=== PATIENT | male | born 1975 | race Caucasian/White ===

== ENCOUNTER 2016-09-30 22:58 | Emergency (ER) | payer OTHER, MEDICARE ==
[2016-09-30 23:15] VITALS: BP 141/77; PULSE 91; RESP 18; TEMP 97.8
[2016-10-01] MEDS ORDERED: LORATADINE 10 MG TAB PO STA (00:10)
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
== END 2016-10-01 00:35 | disposition home or self-care (01) ==
LOC: EC 22:58
DX: T78.49XA Other allergy, initial encounter (principal); Z87.891 Personal history of nicotine dependence; Z79.899 Other long term (current) drug therapy; Z88.0 Allergy status to penicillin; Z88.1 Allergy status to other antibiotic agents
CPT/HCPCS: 99282

== ENCOUNTER 2020-01-11 07:17 | Emergency (ER) | payer MEDICARE, OTHER ==
[2020-01-11 07:24] VITALS: RESP 18
[2020-01-11] MEDS ORDERED: ONDANSETRON 4 MG/2 ML VIAL IVP STA (07:36)
[2020-01-11] MEDS ORDERED: SODIUM CHLORIDE 0.9% 1,000 ML IV STA (07:36)
[2020-01-11] MEDS ORDERED: HYDROmorphone 0.5 MG/0.5 ML SYRINGE IVP STA (07:41)
--- NOTE | 2020-01-11 07:41 | ED ---
General Adult HPI - General Chief complaint: Abdominal Pain Stated complaint: abd pain Time Seen by Provider: 01/11/20 07:20 Source: patient, RN notes reviewed, old records reviewed Mode of arrival: ambulatory Limitations: no limitations - History of Present Illness Initial comments: This is a 44-year-old male who presents to the emergency department complaining of 2 days of the left lower abdominal pain. Patient states he went to [facility] yesterday and had lab work and a CAT scan and they sent him home. Patient states they told him he has a mass on his kidney and he needs to follow-up with urology. He states the pain got so bad that he decided come back to this hospital today. Patient states he has been vomiting and only able to keep down very small amounts of water. Patient states he's not had a normal bowel movement in days but he is still passing a little bit of gas and stool. He fever chills per patient denies any previous abdominal surgeries. Patient states he does have IBS. Patient denies any chest pain difficulty breathing shortness of breath. Patient states since yesterday she's had 4 bloody stools. Patient states he does have bad hemorrhoids and believes that's where the blood is coming from. - Related Data Home Medications Medication Instructions Recorded Confirmed Ergocalciferol (Vitamin D2) 50,000 unit PO 09/30/16 [Vitamin D2] Ibuprofen [Motrin] 600 mg PO Q8HR PRN 09/30/16 09/30/16 Methylphenidate HCl [Ritalin] 20 mg PO TID 09/30/16 09/30/16 Phentermine HCl [Adipex-P] 09/30/16 09/30/16 Allergies Allergy/AdvReac Type Severity Reaction Status Date / Time amoxicillin [From Augmentin] AdvReac Nausea & Verified 01/11/20 07:20 Vomiting & Diarrhea cephalexin [From Keflex] AdvReac Nausea & Verified 01/11/20 07:20 Vomiting & Diarrhea ciprofloxacin [From Cipro] AdvReac Nausea & Verified 01/11/20 07:20 Vomiting & Diarrhea clavulanic acid AdvReac Nausea & Verified 01/11/20 07:20 [From Augmentin] Vomiting & Diarrhea Review of Systems ROS Statement: Those systems with pertinent positive or pertinent negative responses have been documented in the HPI. ROS Other: All systems not noted in ROS Statement are negative. Past Medical History Past Medical History: Asthma Additional Past Medical History / Comment(s): traumatic brain injury, IBS, L4 and L5 bulging disc History of Any Multi-Drug Resistant Organisms: None Reported Past Surgical History: Orthopedic Surgery Additional Past Surgical History / Comment(s): carpal tunnel sx, neck surgery Past Psychological History: PTSD Smoking Status: Never smoker Past Alcohol Use History: None Reported Past Drug Use History: Marijuana General Exam - General Exam Comments Initial Comments: GENERAL: Patient is well-developed and well-nourished. Patient is nontoxic and well- hydrated and is in mild distress. ENT: Neck is soft and supple. No significant lymphadenopathy is noted. Oropharynx is clear. Moist mucous membranes. Neck has full range of motion without eliciting any pain. EYES: The sclera were anicteric and conjunctiva were pink and moist. Extraocular movements were intact and pupils were equal round and reactive to light. Eyelids were unremarkable. PULMONARY: Unlabored respirations. Good breath sounds bilaterally. No audible rales rhonchi or wheezing was noted. CARDIOVASCULAR: There is a regular rate and rhythm without any murmurs gallops or rubs. ABDOMEN: Soft and nontender with normal bowel sounds. SKIN: Skin is clear with no lesions or rashes and otherwise unremarkable. NEUROLOGIC: Patient is alert and oriented x3. Cranial nerves II through XII are grossly intact. Motor and sensory are also intact. Normal speech, volume and content. Symmetrical smile. MUSCULOSKELETAL: Normal extremities with adequate strength and full range of motion. LYMPHATICS: No significant lymphadenopathy is noted PSYCHIATRIC: Normal psychiatric evaluation. Limitations: no limitations Course Vital Signs 01/11/20 07:21 Temperature 97.8 F Pulse Rate 71 Respiratory 18 Rate Blood Pressure 156/105 O2 Sat by Pulse 99 Oximetry Medical Decision Making - Medical Decision Making I will back in the room to reevaluate the patient patient stated he was feeling better and did not want to stay in the hospital even though I offered admission. KUB shows no acute abnormalities. Patient is following up with Dr. Trinidad today. - Lab Data Result diagrams: 01/11/20 07:42 01/11/20 07:42 Lab Results 01/11/20 01/11/20 01/11/20 Range/Units 07:42 07:42 07:42 WBC 12.1 H (3.8-10.6) k/uL RBC 4.87 (4.30-5.90) m/uL Hgb 14.6 (13.0-17.5) gm/dL Hct 45.4 (39.0-53.0) % MCV 93.3 (80.0-100.0) fL MCH 30.0 (25.0-35.0) pg MCHC 32.1 (31.0-37.0) g/dL RDW 13.2 (11.5-15.5) % Plt Count 254 (150-450) k/uL Neutrophils % 71 % Lymphocytes % 19 % Monocytes % 6 % Eosinophils % 2 % Basophils % 1 % Neutrophils # 8.6 H (1.3-7.7) k/uL Lymphocytes # 2.3 (1.0-4.8) k/uL Monocytes # 0.8 (0-1.0) k/uL Eosinophils # 0.3 (0-0.7) k/uL Basophils # 0.1 (0-0.2) k/uL PT (9.0-12.0) sec INR (<1.2) APTT (22.0-30.0) sec Sodium 141 (137-145) mmol/L Potassium 3.9 (3.5-5.1) mmol/L Chloride 107 (98-107) mmol/L Carbon Dioxide 27 (22-30) mmol/L Anion Gap 7 mmol/L BUN 10 (9-20) mg/dL Creatinine 0.72 (0.66-1.25) mg/dL Est GFR (CKD-EPI)AfAm >90 (>60 ml/min/1.73 sqM) Est GFR (CKD-EPI)NonAf >90 (>60 ml/min/1.73 sqM) Glucose 115 H (74-99) mg/dL Calcium 9.0 (8.4-10.2) mg/dL Total Bilirubin 0.7 (0.2-1.3) mg/dL AST 22 (17-59) U/L ALT 20 (4-49) U/L Alkaline Phosphatase 55 (38-126) U/L Total Protein 6.7 (6.3-8.2) g/dL Albumin 4.2 (3.5-5.0) g/dL Amylase 88 (30-110) U/L Lipase 68 (23-300) U/L Urine Color Light Yellow Urine Appearance Clear (Clear) Urine pH 7.5 (5.0-8.0) Ur Specific [place] 1.014 (1.001-1.035) Urine Protein Negative (Negative) Urine Glucose (UA) Negative (Negative) Urine Ketones Negative (Negative) Urine Blood Negative (Negative) Urine Nitrite Negative (Negative) Urine Bilirubin Negative (Negative) Urine Urobilinogen <2.0 (<2.0) mg/dL Ur Leukocyte Esterase Negative (Negative) 01/11/20 Range/Units 07:42 WBC (3.8-10.6) k/uL RBC (4.30-5.90) m/uL Hgb (13.0-17.5) gm/dL Hct (39.0-53.0) % MCV (80.0-100.0) fL MCH (25.0-35.0) pg MCHC (31.0-37.0) g/dL RDW (11.5-15.5) % Plt Count (150-450) k/uL Neutrophils % % Lymphocytes % % Monocytes % % Eosinophils % % Basophils % % Neutrophils # (1.3-7.7) k/uL Lymphocytes # (1.0-4.8) k/uL Monocytes # (0-1.0) k/uL Eosinophils # (0-0.7) k/uL Basophils # (0-0.2) k/uL PT 9.6 (9.0-12.0) sec INR 0.9 (<1.2) APTT 23.2 (22.0-30.0) sec Sodium (137-145) mmol/L Potassium (3.5-5.1) mmol/L Chloride (98-107) mmol/L Carbon Dioxide (22-30) mmol/L Anion Gap mmol/L BUN (9-20) mg/dL Creatinine (0.66-1.25) mg/dL Est GFR (CKD-EPI)AfAm (>60 ml/min/1.73 sqM) Est GFR (CKD-EPI)NonAf (>60 ml/min/1.73 sqM) Glucose (74-99) mg/dL Calcium (8.4-10.2) mg/dL Total Bilirubin (0.2-1.3) mg/dL AST (17-59) U/L ALT (4-49) U/L Alkaline Phosphatase (38-126) U/L Total Protein (6.3-8.2) g/dL Albumin (3.5-5.0) g/dL Amylase (30-110) U/L Lipase (23-300) U/L Urine Color Urine Appearance (Clear) Urine pH (5.0-8.0) Ur Specific [place] (1.001-1.035) Urine Protein (Negative) Urine Glucose (UA) (Negative) Urine Ketones (Negative) Urine Blood (Negative) Urine Nitrite (Negative) Urine Bilirubin (Negative) Urine Urobilinogen (<2.0) mg/dL Ur Leukocyte Esterase (Negative) Disposition Clinical Impression: Abdominal pain, Kidney mass Disposition: HOME SELF-CARE Condition: Good Instructions (If sedation given, give patient instructions): Abdominal Pain (ED) Is patient prescribed a controlled substance at d/c from ED?: No Referrals: Bettye Rosen MD [Primary Care Provider] - 1-2 days Time of Disposition: 09:09
[2020-01-11 08:03] LABS: Basophils # (A) 0.1 k/uL (0-0.2); Basophils % (A) 1 %; Eosinophils # (A) 0.3 k/uL (0-0.7); Eosinophils % (A) 2 %; HCT 45.4 % (39.0-53.0); HGB 14.6 gm/dL (13.0-17.5); Lymphocytes # (A) 2.3 k/uL (1.0-4.8); Lymphocytes % (A) 19 %; MCHC 32.1 g/dL (31.0-37.0); MCV 93.3 fL (80.0-100.0); Mean Platelet Volume 7.2; Monocytes # (A) 0.8 k/uL (0-1.0); Monocytes % (A) 6 %; Neutrophils # (A) 8.6 k/uL (1.3-7.7); Neutrophils % (A) 71 %; Platelet Count 254 k/uL (150-450); RBC 4.87 m/uL (4.30-5.90); RDW 13.2 % (11.5-15.5); WBC 12.1 k/uL (3.8-10.6)
[2020-01-11 08:05] LABS: Appearance,Urine Clear (Clear); Bilirubin,Urine Negative (Negative); Blood,Urine Negative (Negative); Color,Urine Light Yellow; Glucose,Urine (UA) Negative (Negative); Ketones,Urine Negative (Negative); Leukocyte Esterase,Urine Negative (Negative); Nitrite,Urine Negative (Negative); PH, Urine 7.5 (5.0-8.0); Protein,Urine Negative (Negative); Specific Gravity,Urine 1.014 (1.001-1.035); Urobilinogen,Urine <2.0 mg/dL (<2.0)
[2020-01-11 08:11] LABS: INR 0.9 (<1.2); Partial Thromboplastin Time 23.2 sec (22.0-30.0); Prothrombin Time 9.6 sec (9.0-12.0)
[2020-01-11 08:18] LABS: ALT 20 U/L (4-49); AST 22 U/L (17-59); African American GFR (CKD) >90 (>60 ml/min/1.73 sqM); Albumin 4.2 g/dL (3.5-5.0); Alkaline Phosphatase 55 U/L (38-126); Amylase 88 U/L (30-110); Anion Gap 7 mmol/L; Blood Urea Nitrogen 10 mg/dL (9-20); Carbon Dioxide 27 mmol/L (22-30); Chloride 107 mmol/L (98-107); Glucose 115 mg/dL (74-99); Non-African American GFR(CKD) >90 (>60 ml/min/1.73 sqM); Potassium 3.9 mmol/L (3.5-5.1); Sodium 141 mmol/L (137-145); Total Bilirubin 0.7 mg/dL (0.2-1.3); Total Protein 6.7 g/dL (6.3-8.2)
--- NOTE | 2020-01-11 08:28 | XR ---
EXAMINATION TYPE: XR KUB DATE OF EXAM: 01/11/2020 COMPARISON: NONE HISTORY: Pain TECHNIQUE: One view abdominal series FINDINGS: The osseous structures are intact. The bowel gas pattern is nonspecific. Lung bases are clear. Tiny bone island involving the right femoral head noted. IMPRESSION: 1. Nonspecific abdomen.
[2020-01-11 09:21] VITALS: BP 115/79; PULSE 60; TEMP 98.2
== END 2020-01-11 09:20 | disposition home or self-care (01) ==
LOC: EC 07:17
DX: N28.89 Other specified disorders of kidney and ureter (principal); Z79.899 Other long term (current) drug therapy; Z88.0 Allergy status to penicillin; Z88.1 Allergy status to other antibiotic agents
CPT/HCPCS: 36415; 80053; 82150; 83690; 85025; 85610; 85730; 81003; 74018; 99284; 96374; 96375; 96361; J2405; J1170

== ENCOUNTER → 2020-01-16 | Outpatient (CLI) | payer MEDICARE, OTHER ==
--- NOTE | 2020-01-16 13:55 | US ---
EXAMINATION TYPE: US scrotum with doppler. Grayscale and color Doppler Duplex imaging performed of t he scrotum. DATE OF EXAM: 01/16/2020 COMPARISON: NONE CLINICAL HISTORY: N50.8 Pain testes/scrotum. EXAM MEASUREMENTS: TESTICLES: Right Testicle: 3.8 x 2.4 x 3.2 cm Left Testicle: 3.9 x 2.3 x 2.9 cm EPIDIDYMIS HEAD: Right Epididymis: 0.9 x 0.7 cm Left Epididymis: 1.2 x 0.8 cm Doppler performed to assess for testicular vascularity; good bilateral color flow and waveforms are s een. . Presence of hydroceles: small amount of fluid surrounding left testicle Presence of varicoceles: none appreciated Patient pointed out lump just inferior to left testicle , scanning was performed directly over area w ith no definite abnormality noted. No concerning focal intratesticular mass identified bilaterally. Satisfactory blood flow to both test icles on color images. IMPRESSION: Fairly unremarkable study.
== END | disposition home or self-care (01) ==
LOC: RADUSWWP 13:06
PROVIDERS: ATTEND Urology
DX: N50.812 Left testicular pain (principal); N50.811 Right testicular pain
CPT/HCPCS: 76870; 93975

== ENCOUNTER 2020-02-09 11:25 | Day surgery (SDC) | payer MEDICARE, OTHER ==
[2020-02-07 14:40] VITALS: BMI 28.7
[~2020-02-09 11:25] MED LIST: LACTATED RINGERS 1,000 ML IV SCH; LIDOCAINE 1% (10MG/ML) FOR IV START INTRADERMA PRN
[2020-02-09 11:56] VITALS: RESP 16; TEMP 98.4
[2020-02-09] MEDS ORDERED: LIDOCAINE 1% INJ 10MG/ML (20 ML MDV) ONE (12:46)
[2020-02-09] MEDS ORDERED: PROPOFOL 10 MG/ML 20 ML VIAL IV ONE (12:46)
--- NOTE | 2020-02-09 13:26 | P.PCN ---
Date of Procedure: 02/09/20 Description of Procedure: BRIEF HISTORY: Patient is a 44-year-old male presents for outpatient colonoscopy for evaluation of hemorrhage of the anus. Patient reports noting blood per rectum. Family history of Crohn's disease in his father but no colon cancer. Has been seen in the GI clinic. PROCEDURE PERFORMED: Colonoscopy with biopsy and polypectomy. PREOPERATIVE DIAGNOSIS: Hemorrhage of the anus and rectum, no prior colonoscopy. ESTIMATED BLOOD LOSS: Minimal. IV sedation per Anesthesia. PROCEDURE: After informed consent was obtained, the patient, was brought into the endoscopy unit. IV sedation was administered by Anesthesia under continuous monitoring. Digital rectal examination was normal. Initially the Olympus CF-190 flexible video colonoscope was then inserted in the rectum, gradually advanced into the cecum without any difficulty. Careful examination was performed as the scope was gradually being withdrawn. Ileocecal valve and the appendiceal orifice were visualized and appeared normal. Prep was excellent. Mucosa of the cecum, ascending colon, transverse colon, descending colon, sigmoid colon, and rectum appeared normal. Right and left colon was biopsied as well as a normal- appearing terminal ileum. Retroflexion was performed in the rectum and no lesions were seen, low-grade internal hemorrhoids noted. 2 diminutive polyps measuring 1-2 mm in size removed from the transverse colon and descending colon.. The patient tolerated the procedure well. IMPRESSION: 2 diminutive polyps removed with cold forcep polypectomy from the transverse colon and descending colon. Normal-appearing colon from rectum to cecum and normal-appearing terminal ileum with biopsies taken of the right colon, left colon and terminal ileum. Internal hemorrhoids. RECOMMENDATIONS: Findings of this examination were discussed with the patient. Okay to resume diet. Okay to resume medications. Await pathology from biopsies and polypectomy. Would recommend repeat colonoscopy in 7 years for colon polyps, pending pathology from polypectomy.
[2020-02-09 13:42] VITALS: BP 119/80; PULSE 71
== END 2020-02-09 14:15 | disposition home or self-care (01) ==
LOC: ORWHC2ENDO 11:25
PROVIDERS: ATTEND Internal Medicine
DX: K63.5 Polyp of colon (principal); K64.8 Other hemorrhoids; Z83.79 Family history of other diseases of the digestive system; J45.909 Unspecified asthma, uncomplicated; Z88.0 Allergy status to penicillin; Z88.1 Allergy status to other antibiotic agents; Z98.1 Arthrodesis status; Z79.899 Other long term (current) drug therapy; Z85.528 Personal history of other malignant neoplasm of kidney; Z98.890 Other specified postprocedural states
CPT/HCPCS: 88305; 45380; J2001; J2704

== ENCOUNTER → 2020-02-22 | Outpatient (CLI) | payer MEDICARE, OTHER ==
--- NOTE | 2020-02-22 14:43 | XR ---
EXAMINATION TYPE: XR chest 2V DATE OF EXAM: 02/22/2020 COMPARISON: Chest x-ray April 08, 2012 HISTORY: Asthma and congestion. Kidney cancer. TECHNIQUE: Frontal and lateral views of the chest are obtained. FINDINGS: There is background Chronic emphysematous change suspected without new suspicious focal a ir space opacity, pleural effusion, or pneumothorax seen. The cardiac silhouette size remains within normal limits. The osseous structures are intact. IMPRESSION: No acute cardiopulmonary process.
[2020-02-22 15:39] LABS: Basophils # (A) 0.1 k/uL (0-0.2); Basophils % (A) 1 %; Eosinophils # (A) 0.1 k/uL (0-0.7); Eosinophils % (A) 2 %; HCT 47.5 % (39.0-53.0); HGB 15.4 gm/dL (13.0-17.5); Lymphocytes # (A) 1.6 k/uL (1.0-4.8); Lymphocytes % (A) 27 %; MCH 31.3 pg (25.0-35.0); MCHC 32.5 g/dL (31.0-37.0); MCV 96.2 fL (80.0-100.0); Mean Platelet Volume 7.1; Monocytes # (A) 0.4 k/uL (0-1.0); Monocytes % (A) 7 %; Neutrophils # (A) 3.4 k/uL (1.3-7.7); Neutrophils % (A) 60 %; Platelet Count 267 k/uL (150-450); RBC 4.93 m/uL (4.30-5.90); WBC 5.7 k/uL (3.8-10.6)
[2020-02-22 16:00] LABS: African American GFR (CKD) >90 (>60 ml/min/1.73 sqM); Anion Gap 5 mmol/L; Blood Urea Nitrogen 11 mg/dL (9-20); Calcium 9.6 mg/dL (8.4-10.2); Carbon Dioxide 28 mmol/L (22-30); Chloride 107 mmol/L (98-107); Glucose 91 mg/dL (74-99); Non-African American GFR(CKD) >90 (>60 ml/min/1.73 sqM); Potassium 4.3 mmol/L (3.5-5.1); Sodium 140 mmol/L (137-145)
== END | disposition home or self-care (01) ==
LOC: LABWHC1 14:23
PROVIDERS: ATTEND Urology
DX: Z01.818 Encounter for other preprocedural examination (principal); D41.02 Neoplasm of uncertain behavior of left kidney; R58 Hemorrhage, not elsewhere classified; R53.83 Other fatigue; J45.909 Unspecified asthma, uncomplicated; R09.89 Other specified symptoms and signs involving the circulatory and respiratory systems
CPT/HCPCS: 36415; 71046; 80048; 85025; 86850; 86900; 86901; 93005

== ENCOUNTER 2020-03-01 05:46 | Day surgery (SDC) | payer MEDICARE, OTHER ==
[2020-02-24 12:01] VITALS: BMI 28.7
--- NOTE | 2020-02-29 18:04 | P.HPIHPCON ---
History of Present Illness H&P Date: 03/01/20 Chief Complaint: left renal mass Mr Mohr is 44 yo male with hx of left renal mass. He underwent a CT abdomen pelvis which showed a 3 cm left renal mass. . We discussed with him the option of radical nephrectomy, partial nephrectomy, cryoablation and observations. Discussed with him the risk and benefit of each approach. He agreed to proceed with robtoic assisted partial nephrectomy. Discussed with him the potential of open conversion and potential of radical nephrectomy. Discussed risk of bleeding, injury to nearby organs. Discussed risk from anesthesia. He understood all risks and agreed to proceed. Consent for Procedure: I have explained the operation/procedure to the patient, including the risks, benefits, side effects, alternative therapies (including not receiving the proposed treatment or service), the likelihood of the patient achieving his/her goals, and potential recuperation problems for the procedure/sedation/analgesia, as well as any blood products, if indicated. I also explained to the patient the risks, benefits and side effects of the alternatives, as well as the risks related to not receiving the proposed procedure, care, treatment, or services. - Constitutional Constitutional: Denies chills, Denies fever - Cardiovascular Cardiovascular: Denies chest pain, Denies shortness of breath - Genitourinary (Female) Genitourinary: Denies dysuria, Denies hematuria - Neurological Neurological: Denies numbness, Denies weakness Past Medical History Past Medical History: Asthma Additional Past Medical History / Comment(s): traumatic brain injury, IBS, L4 and L5 bulging disc, MASS ON LT KIDNEY History of Any Multi-Drug Resistant Organisms: None Reported Past Surgical History: Orthopedic Surgery Additional Past Surgical History / Comment(s): carpal tunnel sx, neck surgery, COLONOSCOPY Past Anesthesia/Blood Transfusion Reactions: No Reported Reaction Smoking Status: Never smoker - Past Family History Mother Family Medical History: No Reported History Medications and Allergies Home Medications Medication Instructions Recorded Confirmed Type Ergocalciferol (Vitamin D2) 50,000 unit PO TU 09/30/16 02/24/20 History [Vitamin D2] Ibuprofen [Motrin] 600 mg PO Q8HR PRN 09/30/16 02/24/20 History Methylphenidate HCl [Ritalin] 20 mg PO TID 09/30/16 02/24/20 History Dicyclomine [Bentyl] 20 mg PO QID 02/07/20 02/24/20 History Magnesium Citrate (Unknown Dos 1 tab PO DAILY 02/07/20 02/09/20 History Allergies Allergy/AdvReac Type Severity Reaction Status Date / Time amoxicillin [From Augmentin] AdvReac Nausea & Verified 02/24/20 11:51 Vomiting & Diarrhea cephalexin [From Keflex] AdvReac Nausea & Verified 02/24/20 11:51 Vomiting & Diarrhea ciprofloxacin [From Cipro] AdvReac Nausea & Verified 02/24/20 11:51 Vomiting & Diarrhea clavulanic acid AdvReac Nausea & Verified 02/24/20 11:51 [From Augmentin] Vomiting & Diarrhea Surgical - Exam - General well developed, well nourished, no distress, no pain - Eyes PERRL, normal ocular movement - Respiratory normal expansion, normal respiratory effort - Abdomen Abdomen: soft, non tender - Psychiatric oriented to time, oriented to person, oriented to place, speech is normal Assessment and Plan Assessment: 44 yo male with hx of 3 cm left renal mass -OR for robotic assisted left partial nephrectomy
[~2020-03-01 05:46] MED LIST changes: +CLINDAMYCIN 600 MG in DEXTROSE 5% IN WATER 50 ML IVPB ONE; +DEXAMETHASONE SOD PHOSPHATE 10 MG/ML 1 ML VIAL IV ONE; +GENTAMICIN 120 MG in SODIUM CHLORIDE 0.9% 100 ML IVPB ONE; -LACTATED RINGERS 1,000 ML IV SCH; -LIDOCAINE 1% (10MG/ML) FOR IV START INTRADERMA PRN; +MIDAZOLAM 2 MG/2 ML VIAL IV PRN; +ONDANSETRON 4 MG/2 ML VIAL IVP ONE
[2020-03-01] MEDS: LACTATED RINGERS 1,000 ML IV SCH ×2 (06:45→06:55)
[2020-03-01] MEDS ORDERED: LIDOCAINE 1% (10MG/ML) FOR IV START INTRADERMA ONE ×2 (06:45→06:55)
[2020-03-01] MEDS ORDERED: SCOPOLAMINE 1.5MG/72HR PATCH TRANSDERM ONE (07:10)
[2020-03-01] MEDS ORDERED: GLYCOPYRROLATE 0.2 MG/ML 2 ML VIAL ONE (07:36)
[2020-03-01] MEDS ORDERED: NEOSTIGMINE 1 MG/ML 10 ML VIAL ONE (07:36)
[2020-03-01] MEDS ORDERED: MANNITOL 25% 12.5 GM/50 ML VIAL ONE (07:36)
[2020-03-01] MEDS ORDERED: LIDOCAINE 1% INJ 10MG/ML (20 ML MDV) ONE (07:36)
[2020-03-01] MEDS ORDERED: HYDROmorphone (PF) 1 MG/ML ONE (07:36)
[2020-03-01] MEDS ORDERED: SUCCINYLCHOLINE CHLORIDE 100 MG/5 ML SYR IV ONE (07:36)
[2020-03-01] MEDS ORDERED: ROCURONIUM 10 MG/ML (10 ML VIAL) IV ONE (07:36)
[2020-03-01] MEDS ORDERED: MIDAZOLAM 2 MG/2 ML VIAL ONE (07:36)
[2020-03-01] MEDS ORDERED: PROPOFOL 10 MG/ML 20 ML VIAL IV ONE (07:36)
[2020-03-01] MEDS ORDERED: fentaNYL (PF) 50 MCG/ML 2 ML AMP ONE (07:36)
[2020-03-01] MEDS ORDERED: BUPIVACAINE (PF) 0.5% 30 ML VIAL SQ ONE ×2 (08:25)
[2020-03-01] MEDS ORDERED: LACTATED RINGERS 1,000 ML IV ONE (09:22)
--- NOTE | 2020-03-01 10:36 | P.OP ---
Date of Procedure: 03/01/20 Preoperative Diagnosis: Left renal mass Postoperative Diagnosis: Same Procedure(s) Performed: Robotic-assisted left partial nephrectomy Implants: None Anesthesia: LUKASZ Surgeon: Jhon Nair Drivematic Machine Operator #1: Tunde Marroquin Estimated Blood Loss (ml): 25 Pathology: other (left renal mass) Condition: stable Disposition: PACU Indications for Procedure: Mr Mohr is 44 yo male with hx of left renal mass. He underwent a CT abdomen pelvis which showed a 3 cm left renal mass. . We discussed with him the option of radical nephrectomy, partial nephrectomy, cryoablation and observations. Discussed with him the risk and benefit of each approach. He agreed to proceed with robtoic assisted partial nephrectomy. Discussed with him the potential of open conversion and potential of radical nephrectomy. Discussed risk of bleeding, injury to nearby organs. Discussed risk from anesthesia. He understood all risks and agreed to proceed. Operative Findings: left renal mass Description of Procedure: The Patient was brought to the operating room, general anesthesia was induced. diaz catheter was placed. Patient was then placed in modified flank position and all pressure points were padded. He was prepped and draped in sterile fashion. Insuflation was obtained using veress needle. After adequate insuflation was obtained a 8 mm robotic trocor was placed. Robotic trocars and power plant assistant ports were placed under direct vision. The robot was docked into place. Lysis of adhesion was performed. The colon was mobilized medially by incising along the white line of Toldt. the spleen and pancreas was mobilized. At this time the gonadal vein and the ureter was identified. The Psoas plane was developed. Further dissection was carried to the hilum and the renal vein and a rtery were dissected and prepared for clamping. of note patient had two veins and a single artery At this time the lower pole of the kidney was defatted. Further defatting exposed the tumor. The tumor edges were scored using cautery. 2 bulldogs were placed on the renal artery. Attention was carried to the tumor, and the tumor was excised with adequate margins. the defect was closed in two layer using 3-0 V lock for the inner layer and 2-0 V lock for outer layer using the sliding clip technique. The bulldogs were removed and there was no evidence of bleeding from the tumor bed. The total clamp time was 20 minutes. Tisseal and surgicell was applied to the tumor bed. The tumor was placed in the endocatch bag. The robot was de-docked. Fascia was closed with david riveraon using #1 PDS. Skin was closed with subcuticular sutures and dermabond. The patient was awoken from general anesthesia in stable condition. Please refer to the final pathology report for final diagnosis.
[2020-03-01] MEDS ORDERED: ONDANSETRON 4 MG/2 ML VIAL IVP ONE (10:44)
[2020-03-01] MEDS: HYDROmorphone 0.5 MG/0.5 ML SYRINGE IVP PRN ×4 (10:57→11:21)
[2020-03-01] MEDS: KETOROLAC 15 MG/ML 1 ML VIAL IVP SCH ×3 (11:59→23:09)
[2020-03-01] MEDS: METHYLPHENIDATE HCL 10 MG TAB PO SCH ×2 (13:05→17:27)
[2020-03-01] MEDS: DICYCLOMINE 20 MG TAB PO SCH ×3 (13:05→23:08)
[2020-03-01] MEDS: D5-0.45% NACL WITH KCL 20MEQ/L 1,000 ML IV SCH ×2 (13:41→22:25)
[2020-03-01] MEDS ORDERED: ONDANSETRON 4 MG/2 ML VIAL IVP STA (15:56)
[2020-03-01] MEDS ORDERED: ONDANSETRON 4 MG TAB PO PRN (15:56)
[2020-03-01] MEDS: PHENAZOPYRIDINE 100 MG TAB PO SCH ×2 (16:21→23:08)
[2020-03-01] MEDS: oxyCODONE-APAP 5-325MG 1 EACH TAB PO PRN (16:22)
[2020-03-01] MEDS: HEPARIN SODIUM,PORCINE 5,000 UNIT/ML 1 ML VIAL SQ SCH ×2 (17:27→23:09)
[2020-03-01 22:08] VITALS: RESP 18
[2020-03-02] MEDS: oxyCODONE-APAP 5-325MG 1 EACH TAB PO PRN ×2 (00:22→08:00)
[2020-03-02 06:12] VITALS: BP 118/71; PULSE 55; TEMP 98
[2020-03-02] MEDS: KETOROLAC 15 MG/ML 1 ML VIAL IVP SCH (07:59)
[2020-03-02] MEDS: HEPARIN SODIUM,PORCINE 5,000 UNIT/ML 1 ML VIAL SQ SCH (07:59)
[2020-03-02] MEDS: DICYCLOMINE 20 MG TAB PO SCH (08:00)
[2020-03-02] MEDS: METHYLPHENIDATE HCL 10 MG TAB PO SCH (08:01)
[2020-03-02] MEDS: PHENAZOPYRIDINE 100 MG TAB PO SCH (08:02)
--- NOTE | 2020-03-02 08:37 | P.DS ---
Providers Expected date of discharge: 03/02/20 Attending physician: Jhon Nair MD Primary care physician: [facility] Course: On the day of admission, the patient underwent an uncomplicated robotic-assisted laparoscopic left partial nephrectomy. The postoperative course was unremarkable. The patient remained afebrile with stable vital signs. SENG drainage was minimal. On the first postoperative day, the patient reported incisional pain which was tolerable. He was very eager to be discharged home. The abdomen was soft and nondistended. The incisions were clean and dry. Procedures: Robotic-assisted laparoscopic left partial nephrectomy on 03/01/2020 Patient Condition at Discharge: Good Plan - Discharge Summary Discharge Rx Participant: Yes New Discharge Prescriptions: New oxyCODONE HCL/ACETAMINOPHEN [Percocet 5-325 mg] 1 tab PO Q6HR PRN #6 tab PRN Reason: Moderate To Severe Pain Ketorolac [Toradol] 10 mg PO Q6HR #10 tab Ondansetron Odt [Zofran Odt] 4 mg PO Q8HR PRN #6 tab PRN Reason: Nausea And Vomiting No Action Methylphenidate HCl [Ritalin] 20 mg PO TID Ibuprofen [Motrin] 600 mg PO Q8HR PRN PRN Reason: Pain Ergocalciferol (Vitamin D2) [Vitamin D2] 50,000 unit PO TU Dicyclomine [Bentyl] 20 mg PO QID Magnesium Citrate (Unknown Dos 1 tab PO DAILY Discharge Medication List Ergocalciferol (Vitamin D2) [Vitamin D2] 50,000 unit PO TU 09/30/16 [History] Ibuprofen [Motrin] 600 mg PO Q8HR PRN 09/30/16 [History] Methylphenidate HCl [Ritalin] 20 mg PO TID 09/30/16 [History] Dicyclomine [Bentyl] 20 mg PO QID 02/07/20 [History] Magnesium Citrate (Unknown Dos 1 tab PO DAILY 02/07/20 [History] Ketorolac [Toradol] 10 mg PO Q6HR #10 tab 03/02/20 [Rx] Ondansetron Odt [Zofran Odt] 4 mg PO Q8HR PRN #6 tab 03/02/20 [Rx] oxyCODONE HCL/ACETAMINOPHEN [Percocet 5-325 mg] 1 tab PO Q6HR PRN #6 tab 03/02/20 [Rx] Follow up Appointment(s)/Referral(s): Jhon Nair MD [STAFF PHYSICIAN] - 1 Week Activity/Diet/Wound Care/Special Instructions: No lifting, driving, or strenuous activity. Okay to shower 03/03/2020. Diet as tolerated. Discharge Disposition: HOME SELF-CARE
[2020-03-02] MEDS ORDERED: DOCUSATE 100 MG CAP PO SCH (09:15)
== END 2020-03-02 11:13 | disposition home or self-care (01) ==
LOC: OR 05:46 → 6NMEDSUR 10:29 → OR 03-02 11:13
PROVIDERS: ATTEND Urology
DX: C64.2 Malignant neoplasm of left kidney, except renal pelvis (principal); J45.909 Unspecified asthma, uncomplicated; K21.9 Gastro-esophageal reflux disease without esophagitis; K58.9 Irritable bowel syndrome, unspecified; F98.8 Other specified behavioral and emotional disorders with onset usually occurring in childhood and adolescence; Z88.1 Allergy status to other antibiotic agents; Z88.0 Allergy status to penicillin; Z88.2 Allergy status to sulfonamides; Z79.899 Other long term (current) drug therapy; Z98.890 Other specified postprocedural states; Z98.1 Arthrodesis status; Z79.1 Long term (current) use of non-steroidal anti-inflammatories (NSAID)
CPT/HCPCS: 88307; 50543; C1762; J2250; J1644 ×2; J1100; J2710; J2405; J2001; J2150; J3010; J1580; J1170 ×2; J1885 ×2; J0330; J2704; 86850; 86900; 86901

== ENCOUNTER → 2020-08-27 | Outpatient (CLI) | payer MEDICARE, OTHER ==
[2020-08-27 16:32] LABS: African American GFR (CKD) >90 (>60 ml/min/1.73 sqM); Blood Urea Nitrogen 15 mg/dL (9-20); Non-African American GFR(CKD) >90 (>60 ml/min/1.73 sqM)
--- NOTE | 2020-08-28 06:23 | XR ---
EXAMINATION TYPE: XR chest 1V DATE OF EXAM: 08/27/2020 COMPARISON: Chest x-ray February 22, 2020 HISTORY: Kidney cancer. TECHNIQUE: Single frontal view of the chest is obtained. FINDINGS: There is no new suspicious focal air space opacity, pleural effusion, or pneumothorax seen . The cardiac silhouette size remains within normal limits. There is partial visualization of anteri or fusion plate in the cervical spine similar to prior. IMPRESSION: No acute process. No significant change from prior.
--- NOTE | 2020-08-28 07:01 | CT ---
EXAMINATION TYPE: CT abdomen wo/w con DATE OF EXAM: 08/27/2020 COMPARISON: None. HISTORY: Left renal cancer, history of partial nephrectomy. CT DLP: 1181.1 mGycm, Automated Exposure Control for Dose Reduction was Utilized. CONTRAST: CT scan of the abdomen is performed with oral and without and with IV Contrast, patient injected with 100ml mL of Isovue 300. FINDINGS: LUNG BASES: No significant abnormality is appreciated. LIVER/GB: No significant abnormality is appreciated. PANCREAS: No significant abnormality is seen. SPLEEN: No significant abnormality is seen. ADRENALS: No significant abnormality is seen. KIDNEYS: Curvilinear density surrounding the lower pole left kidney lateral aspect with focal volume loss consistent with prior partial nephrectomy change. No renal calculi on noncontrast CT. Postcontra st images show symmetric cortical medullary uptake and excretion without new concerning solid or cyst ic renal mass or hydronephrosis seen bilaterally. BOWEL: Oral contrast does not extend into terminal ileum. No suspicious small or large bowel dilatati on. LYMPH NODES: No greater than 1cm abdominal lymph nodes are appreciated. OSSEOUS STRUCTURES: Mild to moderate disc space narrowing with vacuum disc phenomenon L5-S1 level. Bi lateral pars defect L5 level without spondylolisthesis. Facet arthropathy lower lumbar levels. OTHER: Tiny fat-containing umbilical hernia. IMPRESSION: Posttreatment changes left kidney. No new concerning renal mass or hydronephrosis bilater ally.
== END | disposition home or self-care (01) ==
LOC: RADCTMAIN 16:01
PROVIDERS: ATTEND Urology
DX: C64.9 Malignant neoplasm of unspecified kidney, except renal pelvis (principal); Z88.0 Allergy status to penicillin; Z88.1 Allergy status to other antibiotic agents
CPT/HCPCS: 82565; 84520; 71045; 74170; 36415; Q9967

== ENCOUNTER 2020-11-12 10:30 | Day surgery (SDC) | payer MEDICARE, OTHER ==
[2020-11-09 13:47] VITALS: BMI 30.5
--- NOTE | 2020-11-12 08:57 | P.GSHP ---
History of Present Illness H&P Date: 11/12/20 CHIEF COMPLAINT: Ventral hernia HISTORY OF PRESENT ILLNESS: The patient is a 45-year-old male who presents with a history of swelling and pain along the abdomen from a hernia. Now he presents for surgical intervention. PAST MEDICAL HISTORY: Please see list. PAST SURGICAL HISTORY: Please see list. MEDICATIONS: Please see list. ALLERGIES: Please see list. SOCIAL HISTORY: No illicit drug use FAMILY HISTORY: No reports of Crohn disease or ulcerative colitis. REVIEW OF ORGAN SYSTEMS: CONSTITUTIONAL: No reports of fevers or chills. No reports of weight loss despite prior attempts. GI: Denies any blood in stools or constipation. PHYSICAL EXAM: VITAL SIGNS: Stable GENERAL: Well-developed pleasant male in no acute distress. HEENT: No scleral icterus. Extraocular movements grossly intact. Moist buccal mucosa. NECK: Supple without lymphadenopathy. CHEST: Unlabored respirations. Equal bilateral excursions. CARDIOVASCULAR: Regular rate and rhythm. Distal 2+ pulses. ABDOMEN: Soft, nondistended. Palpable defect of the abdomen. No peritoneal signs. MUSCULOSKELETAL: No clubbing, cyanosis, or edema. ASSESSMENT: 1. Ventral hernia PLAN: 1. Recommend proceeding with robotic ventral hernia repair with mesh. 2. Benefits and risks of surgical intervention was discussed including possibility of open technique. 3. DVT prophylaxis. 4. Antibiotic prophylaxis. 5. Non necrotic pain management including abdominal wall blocks described Past Medical History Past Medical History: Asthma, Cancer, Musculoskeletal Disorder Additional Past Medical History / Comment(s): traumatic brain injury-some memory loss & headaches, IBS, L4 and L5 bulging disc, hx kidney cancer, CTS left hand History of Any Multi-Drug Resistant Organisms: None Reported Past Surgical History: Orthopedic Surgery Additional Past Surgical History / Comment(s): carpal tunnel sx, neck surgery- spinal fusion, partial nephrectomy left side 2019 Past Anesthesia/Blood Transfusion Reactions: Previous Problems w/ Anesthesia Additional Past Anesthesia/Blood Transfusion Reaction / Comment(s): states woke up with one of his surgeries. Smoking Status: Never smoker - Past Family History Mother Family Medical History: No Reported History Medications and Allergies Home Medications Medication Instructions Recorded Confirmed Type Ergocalciferol (Vitamin D2) 50,000 unit PO TU 09/30/16 11/09/20 History [Vitamin D2] Magnesium 200 mg PO DAILY 02/07/20 11/09/20 History Zinc 50 mg PO DAILY 11/09/20 11/09/20 History Allergies Allergy/AdvReac Type Severity Reaction Status Date / Time dicyclomine [From Bentyl] Allergy suicidal Verified 11/09/20 13:27 amoxicillin [From Augmentin] AdvReac Nausea & Verified 11/09/20 13:27 Vomiting & Diarrhea cephalexin [From Keflex] AdvReac Nausea & Verified 11/09/20 13:27 Vomiting & Diarrhea ciprofloxacin [From Cipro] AdvReac Nausea & Verified 11/09/20 13:27 Vomiting & Diarrhea clavulanic acid AdvReac Nausea & Verified 11/09/20 13:27 [From Augmentin] Vomiting & Diarrhea
[~2020-11-12 10:30] MED LIST changes: +ACETAMINOPHEN TAB 500 MG TAB PO PRN; -CLINDAMYCIN 600 MG in DEXTROSE 5% IN WATER 50 ML IVPB ONE; -DEXAMETHASONE SOD PHOSPHATE 10 MG/ML 1 ML VIAL IV ONE; +DEXAMETHASONE SOD PHOSPHATE 4 MG/ML 1 ML VIAL IV ONE; +GABAPENTIN 300 MG CAP PO PRN; -GENTAMICIN 120 MG in SODIUM CHLORIDE 0.9% 100 ML IVPB ONE; +HEPARIN SODIUM,PORCINE/PF 5,000 UNIT/0.5 ML SYRINGE SQ PRN; +HYDROmorphone 0.5 MG/0.5 ML SYRINGE IVP PRN; +LACTATED RINGERS 1,000 ML IV SCH; +MELOXICAM 7.5 MG TAB PO PRN; -MIDAZOLAM 2 MG/2 ML VIAL IV PRN; +TAMSULOSIN 0.4 MG CAP.ER.24H PO PRN
[2020-11-12] MEDS ORDERED: SCOPOLAMINE 1.5MG/72HR PATCH TRANSDERM ONE (11:15)
[2020-11-12] MEDS ORDERED: MIDAZOLAM 2 MG/2 ML VIAL IVP ONE (11:58)
--- NOTE | 2020-11-12 12:12 | P.ANPRN ---
Procedure Note - Anesthesia - Nerve Block Performed Bilateral Erector Spinae Time Out Performed: Yes (1157) Date of Procedure: 11/12/20 Procedure Start Time: 11:57 Procedure Stop Time: 12:08 Location of Patient: PreOp Indication: Acute Post-Operative Pain, Requested by Surgeon Specifically requested for management of pain by DrRajinder: Yaz Almanzar Sedation Type: Sedate with meaningful contact maintained Preparation: Sterile Prep Position: Prone Catheter: None Needle Types: Pajunk Needle Gauge: 21 (100 mm) Ultrasound used to visualize needle placement: Yes Ultrasound used to observe medication spread: Yes Injectate: Other (see comment) (30cc and Saline 20cc 50/50 on each side) Blood Aspirated: No Pain Paresthesia on Injection Noted: No Resistance on Injection: Normal Image Stored and Saved: Yes
[2020-11-12] MEDS ORDERED: PROPOFOL 10 MG/ML 20 ML VIAL IV ONE (12:27)
[2020-11-12] MEDS ORDERED: fentaNYL (PF) 50 MCG/ML 2 ML AMP ONE (12:27)
[2020-11-12] MEDS ORDERED: diphenhydrAMINE 50 MG/ML 1 ML VIAL ONE (12:27)
[2020-11-12] MEDS ORDERED: ROCURONIUM 10 MG/ML (5 ML VIAL) IV ONE (12:27)
[2020-11-12] MEDS ORDERED: GLYCOPYRROLATE 0.2 MG/ML 2 ML VIAL ONE (12:27)
[2020-11-12] MEDS ORDERED: SUCCINYLCHOLINE CHLORIDE 100 MG/5 ML SYR IV ONE (12:27)
[2020-11-12] MEDS ORDERED: MIDAZOLAM 2 MG/2 ML VIAL ONE (12:27)
[2020-11-12] MEDS ORDERED: LIDOCAINE 1% INJ 10MG/ML (20 ML MDV) ONE (12:27)
[2020-11-12] MEDS ORDERED: DEXAMETHASONE SOD PHOSPHATE 10 MG/ML 1 ML VIAL ONE (12:27)
[2020-11-12] MEDS ORDERED: NEOSTIGMINE 1 MG/ML 10 ML VIAL ONE (12:27)
[2020-11-12] MEDS ORDERED: SODIUM CHLORIDE 0.9% (PF) 10 ML VIAL ONE (12:27)
[2020-11-12] MEDS ORDERED: ROPIVACAINE 5 MG/ML 30 ML VIAL ONE (12:27)
[2020-11-12 12:34] LABS: Basophils # (A) 0.1 k/uL (0-0.2); Basophils % (A) 1 %; Eosinophils # (A) 0.2 k/uL (0-0.7); Eosinophils % (A) 3 %; HCT 46.3 % (39.0-53.0); Lymphocytes # (A) 2.1 k/uL (1.0-4.8); Lymphocytes % (A) 29 %; MCH 31.9 pg (25.0-35.0); MCHC 34.5 g/dL (31.0-37.0); MCV 92.3 fL (80.0-100.0); Mean Platelet Volume 7.8; Monocytes # (A) 0.5 k/uL (0-1.0); Monocytes % (A) 8 %; Neutrophils # (A) 4.1 k/uL (1.3-7.7); Neutrophils % (A) 58 %; Platelet Count 264 k/uL (150-450); RBC 5.01 m/uL (4.30-5.90); WBC 7.1 k/uL (3.8-10.6)
[2020-11-12 12:45] LABS: ALT 16 U/L (4-49); AST 23 U/L (17-59); African American GFR (CKD) >90 (>60 ml/min/1.73 sqM); Albumin 4.3 g/dL (3.5-5.0); Alkaline Phosphatase 49 U/L (38-126); Anion Gap 6 mmol/L; Blood Urea Nitrogen 17 mg/dL (9-20); Calcium 9.6 mg/dL (8.4-10.2); Carbon Dioxide 28 mmol/L (22-30); Chloride 107 mmol/L (98-107); Glucose 98 mg/dL (74-99); Non-African American GFR(CKD) >90 (>60 ml/min/1.73 sqM); Potassium 4.4 mmol/L (3.5-5.1); Sodium 141 mmol/L (137-145); Total Bilirubin 0.5 mg/dL (0.2-1.3); Total Protein 6.8 g/dL (6.3-8.2)
[2020-11-12] MEDS ORDERED: BUPIVACAINE (PF) 0.5% 30 ML VIAL SQ ONE (13:01)
[2020-11-12] MEDS ORDERED: SODIUM CHLORIDE 0.9% 1,000 ML IV ONE (13:45)
[2020-11-12] MEDS ORDERED: LACTATED RINGERS 1,000 ML IV ONE ×2 (13:45)
[2020-11-12] MEDS ORDERED: ONDANSETRON 4 MG/2 ML VIAL IVP ONE (13:50)
[2020-11-12 13:55] VITALS: TEMP 97.9
--- NOTE | 2020-11-12 14:12 | P.OP ---
Date of Procedure: 11/12/20 Description of Procedure: SURGEON: YAZ ALMANZAR MD PREOPERATIVE DIAGNOSES: 1. Initial umbilical hernia with incarceration 2. History of renal for cancer, status post left partial nephrectomy 3. Traumatic brain injury with memory impairment 4. Irritable bowel syndrome 5. Multiple drug ALLERGIES 6. Moderate severe postoperative nausea or vomiting POSTOPERATIVE DIAGNOSES: 1. Initial umbilical hernia with incarceration, 1 cm 2. History of renal for cancer, status post left partial nephrectomy 3. Traumatic brain injury with memory impairment 4. Irritable bowel syndrome 5. Multiple drug ALLERGIES 6. Moderate severe postoperative nausea or vomiting OPERATION: 1. Robotic-assisted da Ita Xi laparoscopic repair of initial incarcerated umbilical hernia 1 cm without mesh ANESTHESIA: General with local ESTIMATED BLOOD LOSS: 5 mL. SPECIMENS: Incarcerated umbilical hernia COMPLICATIONS: None. FINDINGS: 1. Initial incarcerated umbilical hernia, 1 cm with contents of pre-peritoneal fat. 2. Mild gallbladder wall thickening questionable for chronic cholecystitis INDICATIONS: The patient is a 45-year-old male who presents with initial umbilical hernia included moderate abdominal pain. Surgical intervention with laparoscopic versus robotic and open techniques were reviewed. Placement of mesh was also reviewed. Benefits and risks were thoroughly described. Informed consent was obtained. DESCRIPTION OF PROCEDURE: The patient was brought into the operating room and laid in supine position. After general induction, the abdomen had been prepped and draped in standard sterile fashion. Ioban draping was also placed. Prior to incision, a timeout protocol was confirmed with surgical team regarding the patient's name including procedures to be performed. The robot was primed prior to the procedure. A field block using local anesthetic was placed along hernia site including the proposed port sites. Initial incision was made with an #11 blade along the left upper quadrant. A 0 degree 5 mm laparoscopic trocar entry was performed. Diagnostic laparoscopy demonstrated an incarcerated umbilical hernia incorporating pre-peritoneal fat. Three 8 mm trocars were placed along the left lateral abdominal wall. Placements of the ports were 15 cm from the target anatomy and 8 cm apart. An accessory 12-mm laparoscopic trochar was placed along the left upper abdomen. The da Ita Xi robot was previously primed, prepped and draped then docked al yonas the left side of the patient. I then sat at the robot Da Ita Xi console where working arms of the robot were scissors, needle courtesy driver, and graspers placed by the botany laboratory assistant. Attention was brought to the umbilicus where an incarcerated umbilical hernia was identified containing preperitoneal fat. The incarcerated contents was reduced as the peritoneal fat was cleaned from the abdominal wall. Next, hemostasis was checked with cautery. The hernia defect of 1-cm was oversewn using nonabsorbable #1 VLOC with fascial imbrication 3. A final endoscopic imaging was obtained. All instruments and pneumoperitoneum were evacuated from the abdominal cavity. The da Ita Xi robot was undocked from the patient. I re-scrubbed into the case for closure of incisions. At the umbilicus, the skin was oversewn with 4-0 Monocryl. An umbilical dressing using 4 x 4 and Tegaderm was placed. The incisions were reapproximated using 4-0 Monocryl in an interrupted subcuticular fashion. Exofin liquid glue was applied to the skin after cleansing the skin with normal saline and dilute hydrogen peroxide. An abdominal binder was placed. At the end of the procedure, needle, sponge, and instrument count had been verified correct by surgical coder. The patient was taken to the postanesthesia care unit in stable condition. Plan - Discharge Summary Discharge Rx Participant: Yes New Discharge Prescriptions: New Scopolamine 1.5MG/72Hr Patch [TransDerm Scop] 1 patch TRANSDERM Q72H #2 patch Ondansetron Odt [Zofran ODT] 4 mg PO Q8HR PRN #20 tab PRN Reason: Nausea Ibuprofen [Motrin] 600 mg PO Q8HR PRN #30 tab PRN Reason: Pain Acetaminophen Tab [Tylenol Tab] 1,000 mg PO Q6HR PRN #30 tablet PRN Reason: Pain Continue Ergocalciferol (Vitamin D2) [Vitamin D2] 50,000 unit PO TU Discontinued Magnesium 200 mg PO DAILY Zinc 50 mg PO DAILY Discharge Medication List Ergocalciferol (Vitamin D2) [Vitamin D2] 50,000 unit PO TU 09/30/16 [History] Acetaminophen Tab [Tylenol Tab] 1,000 mg PO Q6HR PRN #30 tablet 11/12/20 [Rx] Ibuprofen [Motrin] 600 mg PO Q8HR PRN #30 tab 11/12/20 [Rx] Ondansetron Odt [Zofran ODT] 4 mg PO Q8HR PRN #20 tab 11/12/20 [Rx] Scopolamine 1.5MG/72Hr Patch [TransDerm Scop] 1 patch TRANSDERM Q72H #2 patch 11/12/20 [Rx] Follow up Appointment(s)/Referral(s): Yaz Almanzar MD [STAFF PHYSICIAN] - 11/20/20 Patient Instructions/Handouts: Ventral Hernia Repair (GEN), Laparoscopic Herniorrhaphy (IP) Activity/Diet/Wound Care/Special Instructions: Using antibacterial soap. No lifting over 4 pounds 4 weeks, Dec 13September shower. No bathtub soaks for 2 weeks, November 26 Wear abdominal binder daily for comfort except for showering. Use ice along incisions for today to prevent swelling. Take tylenol, aleve/ibuprofen, simethicone scheduled for 3 days for best pain relief Discharge Disposition: HOME SELF-CARE
[2020-11-12 14:29] VITALS: RESP 18
[2020-11-12 15:11] VITALS: BP 133/87; PULSE 56
[2020-11-12] MEDS ORDERED: NALOXONE 0.4 MG/ML 1 ML VIAL IV PRN (15:13)
[2020-11-12] MEDS ORDERED: ONDANSETRON 4 MG/2 ML VIAL IVP PRN (15:13)
--- NOTE | 2020-11-12 15:17 | P.PN ---
Progress Note - Text Progress Note Date: 11/12/20 Notified by nursing that patient having trouble with requested prescription for nausea. At the time of my assessment, patient denied any nausea. Multiple preoperative medications were given for prevention. Nausea or vomiting. Patient reports 9/10 incisional pain. Patient's at bedside, angry and belligerent to staff including myself. I offered patient to stay overnight for adequate pain control. His refused his admission and reported that patient has Percocet at home. She reports his prior hospitalization from a nephrectomy was less than 24 hours. Patient then developed severe postoperative nausea and vomiting 3 days after his prior discharge. Recommendation for admission for pain management and nausea control described. Nursing staff advised that patient must meet discharge criteria prior to discharge home.
--- NOTE | 2020-11-12 17:38 | P.PN ---
Progress Note - Text Progress Note Date: 11/12/20 I returned to the postanesthetic care unit. PACU nurse notified the patient chose to go home with instead of staying in the hospital for additional management for pain. Patient's called my office requesting that I call her back. I was in the PACU with additional discussion with his PACU nurse. I called [phone] and his picked up the phone. She reported that she was not present at her 's initial consultation but was her daughter. She was not at her 's bedside while in the preop area. Patient was offered preoperative medications and did not decline. stated patient had overactive bladder which was not present in his medical history. Patient's stated that she needs to be there all times to help him make decisions. Patient was not labeled VIP where she would make his decisions. Patient had given informed consent for surgery including block and for preoperative medications. also concerned about pain management. Nonnarcotic pain management previously reviewed. The patient and stated he had Percocets at home. inquired about type of block used and medication used for his block. Block was performed per anesthesia. expressed her concerns and hung up the phone.
[2020-11-12] MEDS ORDERED: KETOROLAC 15 MG/ML 1 ML VIAL IVP SCH (18:00)
== END 2020-11-12 15:42 | disposition home or self-care (01) ==
LOC: OR 10:30
PROVIDERS: ATTEND Surgery Plastic and Reconstructive Surgery
DX: K42.0 Umbilical hernia with obstruction, without gangrene (principal); K58.9 Irritable bowel syndrome, unspecified; Z87.820 Personal history of traumatic brain injury; M51.26 Other intervertebral disc displacement, lumbar region; Z85.528 Personal history of other malignant neoplasm of kidney; J45.909 Unspecified asthma, uncomplicated; F98.8 Other specified behavioral and emotional disorders with onset usually occurring in childhood and adolescence; M54.9 Dorsalgia, unspecified; Z88.1 Allergy status to other antibiotic agents; Z88.0 Allergy status to penicillin
CPT/HCPCS: 49653; S2900; 64999; 80053; 85025; 88302